=== PATIENT | female | born 1995 | race Two or more races ===

== ENCOUNTER 2018-11-27 07:58 | Emergency (ER) | payer BC ==
[~2018-11-27] VITALS: Ht 157.5 cm; Wt 48.0 kg
--- NOTE | 2018-11-27 08:01 | NUR ---
23 Y/O FEMALE PRESENTS TO ED WITH C/O SYNCOPE. "I WASN'T FEELING TOO WELL AND MY VISION WAS GONE. IT WAS WHITE AND I COULDN'T HEAR. SO THEY TOOK ME TO THE FLOOR. I HAD A RICE KRISPIE TREAT FOR A SNACK EARLIER. WE WERE TAKING VITALS AND THE FIRST TIME I ASKED IF I COULD GET SOME WATER. I FELT LIGHT HEADED. I HAD SOME GATORADE AND WATER. I WENT OUT TO THE FLOOR. 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 NO C/O N/V/D, TRAUMA, CP, SOB.
--- NOTE | 2018-11-27 08:22 | NUR ---
late entry: 8:00- pt was a code 250 on oncology floor. pt apparently felt dizzy and then had a syncopal episode while up in the med room on the oncology floor. 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 on arrival- blood glucose was done 89. pt talking and lying on floor in no distress. patient pale. pt stated that she has these syncopal events at times. pt a&ox4 and answering questions appropriately. blood pressure manually was 120/68. pt then transferred to wheelchair and brought down to emergency department. Family member was informed by phone by oncology supervisor knitting of patient event. pt placed in room 19 and placed in gown. pt placed on bp, cont. pulse oximeter and panel monitor. report given to lisa hayes.
[2018-11-27 09:06] LABS: BASOPHILS # (AUTO) 0.02 x10^3/uL (0-0.1); BASOPHILS % (AUTO) 0 % (0-1); EOSINOPHILS # (AUTO) 0.22 x10^3/uL (0-0.4); EOSINOPHILS % (AUTO) 3 % (1-7); LYMPHOCYTES % (AUTO) 25 % (22-44); MD NO; MEAN CORPUSCULAR HEMOGLOBIN 28.8 pg (27.0-34.8); MEAN CORPUSCULAR HGB CONC 33.8 g/dL (32.4-35.8); MEAN CORPUSCULAR VOLUME 85.1 fL (80-100); MEAN PLATELET VOLUME 8.5 fL (7.4-10.4); MONOCYTES # (AUTO) 0.45 x10^3/uL (0.2-0.8); MONOCYTES % (AUTO) 7 % (2-9); NEUTROPHILS # (AUTO) 4.48 x10^3/uL (1.8-6.8); NEUTROPHILS % (AUTO) 65 % (42-75); PLATELET COUNT 231 x10^3/uL (130-400); RED BLOOD COUNT 4.83 x10^6/uL (3.82-5.3); RED CELL DISTRIBUTION WIDTH 14.3 % (9.6-15.2)
--- NOTE | 2018-11-27 09:14 | NUR ---
PT RESTING ON GURNEY. FAMILY BEDSIDE. PT FAMILY PROTECTION SPECIALIST BEDSIDE. NO ACUTE DISTRESS NOTED.
[2018-11-27 09:18] LABS: ALBUMIN 3.9 g/dL (3.4-5.0); ANION GAP 6 mmol/L (5-15); CALCIUM 8.5 mg/dL (8.5-10.1); CHLORIDE 108 mmol/L (98-107); CREATININE 0.78 mg/dL (0.55-1.02)
[2018-11-27 10:00] VITALS: BP 125/79
== END 2018-11-27 10:24 | disposition home or self-care (01) ==
LOC: ED 10:15
DX: R55 Syncope and collapse (principal); R42 Dizziness and giddiness
CPT/HCPCS: 36415; 80048; 82040; 84703; 85025; 93005; 99284